=== PATIENT | male | born 2005 | race Two or more races ===

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

== ENCOUNTER 2024-10-27 09:59 | Emergency (ER) | payer MEDICAID, OTHER ==
[~2024-10-27] VITALS: Ht 167.6 cm; Wt 61.4 kg
[~2024-10-27 09:59] MED LIST: HYDR-3965 PO
[2024-10-27 10:02] VITALS: BP 152/55; PULSE 80; RESP 16; TEMP 97.5; O2SAT 98
--- NOTE | 2024-10-27 10:12 | Physician Documentation ---
History of Present Illness ~ Chief Complaint: Wound Stated Complaint: HAND LACS Time Seen by MD: 10:05 OK to notify your PCP?: Yes [facility] Source: patient Mode of Arrival: POV Exam Limitations: no limitations HPI 19-year-old male who was sent here from his employer due to his hand bleeding at work and being sent home from work. He states he has cuts on his hands occurred at work. He states this occurred three days ago but he was initially supposed to go to a clinic but reports the clinic was not able to see him where the clinic was closed which is why he came to the ER today. He also reports a lot of calluses on his hands which he attributes to his work as well. Tetanus iz up to date. Tetanus within 5 years?: No Medication Reconciliation Allergies: Coded Allergies: No Known Allergies (Unverified , 10/27/24) Scheduled Hydrocodone Bit/Acetaminophen 5/325 MG ([place] 5/325 MG), 1 TABLET PO TID Past Medical History Past Medical History: No Pertinent History Past Surgical History: no surgical history Drug Use: none Lives In: Home Occupation: employed Review of Systems All Other Systems at this time: Reviewed and Negative Physical Exam Vital Signs: Temperature: 97.5, Source: Temporal, Heart Rate: 80, Respiratory Rate: 16, BP: 152/55, Pulse Oximetry: 98, Weight: 61.360 Oxygen Flow Rate: 0 Physical Exam General Appearance: Alert, WD/WN. NAD. HEENT: NCAT, PERRL, EOMI. Neck: Supple, trachea midline. Cardiovascular: RRR. No m/r/g. Lungs: CTAB. Breathing unlabored Extremities: Normal inspection. No edema. Skin: Warm/dry, normal color. SMALL LACERATION ON FINGERTIP RIGHT 3RD DIGIT WHICH IS DIFFICULT TO SEE IT IS ALMOST HEALED, NO EDEMA, ECCHYMOSIS, BLEEDING. Neurological: Alert and oriented x4, normal gait. Psychiatric: Affect congruent with mood. Progress Results/Orders Results/Orders Vital Signs 10/27/24 10:02 Temp 97.5 Pulse 80 Resp 16 B/P (MAP) 152/55 Pulse Ox 98 O2 Flow Rate 0 Medical Decision Making Differential Dx:Considerations: Include: Abscess, Cellulitis, Dressing change, Healing wound Departure Time of Disposition: 10:11 Disposition: 01 HOME / SELF CARE / HOMELESS Impression: Primary Impression: Laceration Condition: Stable Discharge Instructions: Laceration Care, Adult, [id number] Additional Instructions: LACERATION ALMOST COMPLETELY HEALED NO FURTHER TREATMENT NEEDED CLEARED TO RETURN TO WORK Referrals: EMERGENCY,DEPARTMENT (PCP) Education Educated: Patient Educated regarding: diagnosis, treatment, need for follow up Signature Scribe Signature: x Attestation: WILLIAN Pacheco Oct 27, 2024 10:12
== END 2024-10-27 10:23 | disposition home or self-care (01) ==
LOC: ER 10:00
DX: S61.212D Laceration without foreign body of right middle finger without damage to nail, subsequent encounter (principal); X58.XXXD Exposure to other specified factors, subsequent encounter; Z79.899 Other long term (current) drug therapy
CPT/HCPCS: 99281